=== PATIENT | female | born 1955 | race Caucasian/White ===

== ENCOUNTER 2018-09-03 21:50 | Emergency (ER) | payer MEDICARE, OTHER ==
[~2018-09-03] VITALS: Ht 157.5 cm; Wt 54.4 kg
--- NOTE | 2018-09-03 21:55 | NUR ---
Dr. Ron at bedside for MSE.
[2018-09-03] MEDS ORDERED: IV NORMAL SALINE 500 ML BAG IV ONE (22:00)
[2018-09-03] MEDS ORDERED: PROCHLORPERAZINE EDISYLATE 10 MG/2 ML VIAL IV ONE (22:00)
[2018-09-03] MEDS ORDERED: HYDROMORPHONE 1 MG/1 ML DISP.SYRIN IV ONE (22:00)
[2018-09-03] MEDS ORDERED: PROCHLORPERAZINE EDISYLATE 10 MG/2 ML VIAL ONE (22:04)
[2018-09-03] MEDS ORDERED: HYDROMORPHONE 1 MG/1 ML DISP.SYRIN ONE (22:04)
--- NOTE | 2018-09-03 22:18 | NUR ---
Xray at bedside.
--- NOTE | 2018-09-03 22:21 | NUR ---
Pt out of ER for CT.
[2018-09-03 22:23] LABS: BASOPHILS # (AUTO) 0.1 K/uL (0.0-8.0); BASOPHILS % (AUTO) 0.9 % (0.0-2.0); EOSINOPHILS # (AUTO) 0.1 K/uL (0.0-0.7); EOSINOPHILS % (AUTO) 1.7 % (0.0-7.0); HEMATOCRIT 46.3 % (31.2-41.9); HEMOGLOBIN 16.1 g/dL (10.9-14.3); LYMPHOCYTES # (AUTO) 1.2 K/uL (20.0-40.0); LYMPHOCYTES % (AUTO) 19.1 % (20.5-51.5); MEAN CORPUSCULAR HEMOGLOBIN 31.5 uug (24.7-32.8); MEAN CORPUSCULAR HGB CONC 35 g/dL (32.3-35.6); MEAN CORPUSCULAR VOLUME 90.4 fL (75.5-95.3); MONOCYTES # (AUTO) 0.1 K/uL (2.0-10.0); MONOCYTES % (AUTO) 2.4 % (0.0-11.0); NEUTROPHILS # (AUTO) 4.6 K/uL (1.8-8.9); NEUTROPHILS % (AUTO) 75.9 % (38.5-71.5); PLATELET COUNT (AUTO) 324 K/uL (179-408); RED BLOOD CELL COUNT(AUTO) 5.12 MIL/uL (3.63-4.92); WHITE BLOOD COUNT (AUTO) 6.1 K/uL (3.8-11.8)
[2018-09-03 22:33] LABS: BILIRUBIN,DIRECT 0.1 mg/dL (0.0-0.2); BILIRUBIN,TOTAL 0.7 mg/dL (0.2-1.0); TOTAL PROTEIN, SERUM 8.3 g/dL (6.4-8.2)
--- NOTE | 2018-09-03 22:36 | NUR ---
Pt back to ER from CT.
[2018-09-03 22:43] LABS: CREATININE 0.7 mg/dL (0.6-1.3); POTASSIUM 3.5 mmol/L (3.5-5.1)
--- NOTE | 2018-09-03 22:45 | NUR ---
Pt refused real catheter. Placed patient on bedpan.
--- NOTE | 2018-09-03 22:51 | NUR ---
Pt provided urine sample, sent to lab.
[2018-09-03 22:56] LABS: *BILIRUBIN,URIN NEGATIVE (NEGATIVE); *BLOOD, URINE 2+ (NEGATIVE); *CLARITY,URINE SLIGHTLY CLOUDY (CLEAR); *COLOR,URINE YELLOW (YELLOW); *KETONES,URINE 2+ (NEGATIVE); *PROTEIN,URINE TRACE (NEGATIVE); *UROBILINOGEN,URINE 0.2 E.U./dl (NORMAL); LEUKOCYTE ESTERASE ,URINE 3+ (NEGATIVE); NITRITE, URINE POSITIVE (NEGATIVE); UGLUCOSE NEGATIVE (NEGATIVE)
[2018-09-03 22:59] LABS: BACTERIA,URINE MANY /HPF (NONE SEEN); SQUAMOUS EPITHELIAL CELL,UR FEW /HPF (NONE SEEN); WBC,URINE 20-50 /HPF (0-3)
[2018-09-03] MEDS ORDERED: IV NORMAL SALINE 1000 ML BAG IV ONE (23:00)
[2018-09-03] MEDS ORDERED: NITROFURANTOIN/NITROFURAN MAC 100 MG CAPSULE ONE (23:11)
[2018-09-03] MEDS ORDERED: NITROFURANTOIN/NITROFURAN MAC 100 MG CAPSULE PO ONE (23:15)
--- NOTE | 2018-09-03 23:33 | NUR ---
Patient discharged to home in stable conditon. Written and verbal after care instructions given. Patient verbalizes understanding of instructions. Pt out of ER via wheelchair, in waiting room accompanied by caregiver waiting for taxi, no acute signs of distress, VSS, all belongings taken, IV site discontinued.
[2018-09-03 23:35] VITALS: BP 125/85
== END 2018-09-03 23:36 | disposition home or self-care (01) ==
LOC: ER 21:52
DX: R51 Headache (principal); R11.0 Nausea; F20.9 Schizophrenia, unspecified; E87.1 Hypo-osmolality and hyponatremia; M35.00 Sjogren syndrome, unspecified; K21.9 Gastro-esophageal reflux disease without esophagitis; Z88.2 Allergy status to sulfonamides
CPT/HCPCS: 36415; 70450; 71045; 80048; 80076; 81001; 84484; 85025; 85730; 93005; 96374; 96375; 99284; J0780; J1170; 70030-TC; A4663; C1758; J7030; J7040

== ENCOUNTER 2018-12-14 21:06 | Inpatient (IN) | payer MEDICARE, OTHER ==
[~2018-12-14] VITALS: Ht 165.1 cm; Wt 45.4 kg
--- NOTE | 2018-12-14 21:34 | NUR ---
Patient refused xray
[2018-12-14] MEDS ORDERED: POLY15DR57 OP (22:12)
[2018-12-14] MEDS ORDERED: PALI234D IM (22:12)
[2018-12-14 22:33] LABS: BASOPHILS % (AUTO) 0.4 % (0.0-2.0); EOSINOPHILS # (AUTO) 0.8 K/uL (0.0-0.7); EOSINOPHILS % (AUTO) 6.8 % (0.0-7.0); HEMATOCRIT 38.5 % (31.2-41.9); HEMOGLOBIN 13.1 g/dL (10.9-14.3); LYMPHOCYTES # (AUTO) 0.6 K/uL (20.0-40.0); LYMPHOCYTES % (AUTO) 4.8 % (20.5-51.5); MEAN CORPUSCULAR HEMOGLOBIN 30.3 uug (24.7-32.8); MEAN CORPUSCULAR HGB CONC 34 g/dL (32.3-35.6); MONOCYTES # (AUTO) 0.5 K/uL (2.0-10.0); NEUTROPHILS # (AUTO) 9.8 K/uL (1.8-8.9); PLATELET COUNT (AUTO) 236 K/uL (179-408); RED BLOOD CELL COUNT(AUTO) 4.32 MIL/uL (3.63-4.92); WHITE BLOOD COUNT (AUTO) 11.6 K/uL (3.8-11.8)
[2018-12-14 22:42] LABS: CARBON DIOXIDE 28 mmol/L (21-32); CHLORIDE 94 mmol/L (98-107); CREATININE 0.7 mg/dL (0.6-1.3); GLUCOSE 107 mg/dL (74-106); POTASSIUM 3.6 mmol/L (3.5-5.1); UREA NITROGEN, BLOOD 9 mg/dL (7-18)
[2018-12-14 22:47] LABS: ALANINE AMINOTRANSFERASE 47 U/L (14-59); ALKALINE PHOSPHATASE 59 U/L (50-136); ASPARTATE AMINOTRANSFERASE 37 U/L (15-37); BILIRUBIN,DIRECT 0.1 mg/dL (0.0-0.2); BILIRUBIN,TOTAL 0.4 mg/dL (0.2-1.0); TOTAL PROTEIN, SERUM 6.3 g/dL (6.4-8.2)
[2018-12-14 22:48] LABS: ACETAMINOPHEN < 10.0 ug/mL (10-30); ETHANOL < 3 MG/DL (0-0)
[2018-12-14 22:55] LABS: THYROID STIMULATING HORMONE 3.981 mIU/mL (0.358-3.740)
--- NOTE | 2018-12-14 23:25 | NUR ---
DR EDWARDS SPOKE WITH BANG MALHOTRA. OKAY TO ADMIT TO MHU. MEDICALLY CLEARED
--- NOTE | 2018-12-15 00:23 | NUR ---
TRANSFERED TO [facility] [place] [facility] [place]
[2018-12-15] MEDS ORDERED: ACETAMINOPHEN 325 MG TABLET PO PRN (00:30)
[2018-12-15] MEDS ORDERED: ZOLPIDEM 5 MG TABLET PO PRN (00:30)
[2018-12-15] MEDS ORDERED: LORAZEPAM 1 MG TABLET PO PRN (00:30)
[2018-12-15] MEDS ORDERED: MAGNESIUM HYDROXIDE 30 ML LIQUID UDC PO PRN (00:30)
--- NOTE | 2018-12-15 03:46 | NUR ---
Admitted a 64-year-old female from ER @0015 via [email or web address] with admitting diagnosis of psychosis. Accompanied by her caregiver and ER nurse. On 5150 hold up to 12/18/18 @2150 due to GD and DTO. Patient not interacting, uncooperative with care. Refused to be assess, to take pictures. History was taken from the mall plant caretaker. According to the caregiver, skin has rash on the upper chest and under the left breast fold. Referred to the ER doctor's note, the patient was combative, verbally aggressive toward [facility] staff, has bizarre behavior, and paranoidal thinking. Continue to monitor.
[2018-12-15] MEDS: BENZTROPINE MESYLATE 1 MG TABLET PO SCH ×2 (09:45→17:00)
[2018-12-15] MEDS: FLUPHENAZINE HCL 5 MG TABLET PO SCH ×2 (09:45→17:00)
[2018-12-15] MEDS ORDERED: FLUPHENAZINE HCL 2.5 MG/ML 10ML VIAL IM PRN (09:45)
--- NOTE | 2018-12-15 10:25 | NUR ---
RECEIVED PATIENT ALERT ON BED, ISOLATIVE AND WITHDRAWN, PATIENT INCREASE IN PARANOIA, NON COMPLIANT WITH MEDICATION VERBALLY ABUSIVE , PATIENT REFUSE MEDS, STOOD UP AND WENT TO THE FLOOR, PATIENT REFUSE TO GO BACK TO BED, REPOSITION BED TO FLAT, PATIENT WENT BACK TO BED, WILL CONTINUE MONITOR
--- NOTE | 2018-12-16 04:36 | NUR ---
RECEIVED PATIENT IN HER ROOM IN BED. WHEN OUTGOING RN INTRODUCED THIS PEER COUNSELOR, PT NOTED SELECTIVELY MUTE, NOT ANSWERING ANY ON THE QUESTION. FLAT AFFECT, IRRITABLE MOOD, LABILE, AND BIZARRE BEHAVIOR IS NOTED. NO AGGRESSIVE/COMBATIVE BX NOTED AT THIS TIME. V/S STABLE. PATIENT WAS REASSURED FOR HER SAFETY. WILL CONTINUE TO MONITOR.
[2018-12-16] MEDS ORDERED: OLANZAPINE 10 MG VIAL IM ONE ×2 (07:30→12:45)
--- NOTE | 2018-12-16 07:40 | NUR ---
AT APPROX 0720 PATIENT CAME INTO THE NURSE'S COMPUTER ROOM AND OPEN THE STAFF REFRIGERATOR AND HELPING HERSELF WITH FOOD AND DRINK. WHEN ATTEMPTED TO REMOVED PATIENT OUT OF THE COMPUTER ROOM AND REDIRECTED, SHE BECAME VERBALLY ABUSIVE, COMBATIVE, COMING AFTER THIS ROADABILITY MACHINE OPERATOR, HITTING AND SLAPPING CNAs. SECURITY WAS CALLED. DR ROSAS WAS NOTIFY OF OH'S BEHAVIOR AND OBTAINED NEW TELEPHONE ORDER TO ADMINISTER ZYPREXA 10MG IM ONE TIME ORDER. ORDER NOTED AND CARRIED OUT. WILL CONTINUE TO MONITOR.
[2018-12-16] MEDS: BENZTROPINE MESYLATE 1 MG TABLET PO SCH ×2 (09:00→17:00)
[2018-12-16] MEDS: POLYVINYL ALCOHOL OPHT DROPS 15 ML BOTTLE EACHEYE SCH (09:00)
[2018-12-16] MEDS: FLUPHENAZINE HCL 5 MG TABLET PO SCH ×2 (09:00→09:13)
--- NOTE | 2018-12-16 09:10 | NUR ---
Gps/Electronic Prepress Operator- Found patient lying flat on the floor, next to her bed buttomless, no pants, when asked to get up from the floor refused. Staff (3) assisted patient to stand up, refusing to bed pants/diaper, was uncooperative, kicking and hitting staff, verbally abusive to the staff. Put on the celestine-chair in front of the Nurses station pretending not responding eyes are close, but in about 5 minutes patient got out of the celestine-chair, walked back to her room and put self into her bed, covered self with her bed sheets.No distress, continue to monitor behavior, safety emphasized.
--- NOTE | 2018-12-16 09:54 | NUR ---
SW attempted to contact patient's LPS Conservator, Luz Elena Marcano ([phone]) to gather collateral information. SW left a voice message for a return call. SW will continue to follow-up.
--- NOTE | 2018-12-16 12:30 | NUR ---
Gps/Environmental Field Services Technician- Continue to monitor behavior, patient very disruptive , agitated, aggresive towards the staff, difficulty redirecting patient,threw lunch tray on the floor, then requesting more lunch tray . Fluid restrictions emphasized.
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
--- NOTE | 2018-12-16 15:00 | NUR ---
Gps/Jewel Bearing Driller- Patient requested 2 apple sauce, when spoon given requested 2 spoons, informed she does not need 2 spoon, she started yelling, calling staff names and threw opened apple sauce in the Nurses station, and walked away.
--- NOTE | 2018-12-16 17:09 | NUR ---
Gps/Reeling Operator- Continue with setting limits, patient w/ a demanding behavior, gets needy and argumentative, with verbally abussive behavior noted.Gets irritable and angry when being redirected .Tends to lay down on the floor, discouraged from doing so, when being ignored tend to get up , and goes right back to bed.
--- NOTE | 2018-12-16 17:44 | NUR ---
Gps/Fruit Thinner- Per patient ,staff kept offering and giving her medications ,which is poison , so she can early. Remains with paranoid behavior .,
--- NOTE | 2018-12-16 22:06 | NUR ---
Received pt sleeping in bed. Pt refused vital signs check. Risks and benefits explained. Pt approached the station and asked for dinner. Pt had 2 sandwiches and 1 diet soda. Pt is now back to bed and sleeping. Safety measures maintained. Will continue to monitor.
[2018-12-17] MEDS: OLANZAPINE 10 MG VIAL IM PRN ×2 (08:41→17:53)
[2018-12-17] MEDS: FLUPHENAZINE HCL 5 MG TABLET PO SCH ×2 (08:45→17:00)
[2018-12-17] MEDS: BENZTROPINE MESYLATE 1 MG TABLET PO SCH ×2 (08:45→17:00)
[2018-12-17] MEDS: POLYVINYL ALCOHOL OPHT DROPS 15 ML BOTTLE EACHEYE SCH (08:45)
--- NOTE | 2018-12-17 12:25 | NUR ---
Initial Discharge Instructions: Patient is a resident at [facility] [[address] [place] [address]; [phone]]. Spoke with pt's LPS Conservator, Luz Elena ([phone]) who reports she would like patient to return to that facility upon discharge. Conservator states that pt is there with 24/7 caregiver. SW attempted to contact Wheel Braider, Bree Echeverria ([phone]) to confirm that the patient can return there. SW left a message for a return call. KELLY will continue to collaborate with pt, LPS Conservator, and MD regarding most appropriate discharge plans for this patient. SW will form a safe and proper discharge plan.
--- NOTE | 2018-12-17 18:10 | NUR ---
Gps/Transplant Worker- Noted patient calmer this pm, offered her routine pm meds. patient claimed she does not need anymore , she already had her IM shot this am, reviewed w/ patient every time she refused her routine psych. med. she will received injection . When staff came to her room to administer her injection patient was calm, cooperative , she pulled her pants down to assist staff .
--- NOTE | 2018-12-18 06:25 | NUR ---
GPS: Remain calm and cooperative with care. no agitation noted. slept 9 hrs through out the night. resting in bed comfortably. continue plan of care.
--- NOTE | 2018-12-18 06:26 | NUR ---
gps: refused am lab. charge nurse aware.
[2018-12-18] MEDS: BENZTROPINE MESYLATE 1 MG TABLET PO SCH ×2 (09:00→16:51)
[2018-12-18] MEDS: POLYVINYL ALCOHOL OPHT DROPS 15 ML BOTTLE EACHEYE SCH (09:00)
[2018-12-18] MEDS: FLUPHENAZINE HCL 5 MG TABLET PO SCH ×2 (09:00→16:51)
[2018-12-18] MEDS: OLANZAPINE 10 MG VIAL IM PRN ×2 (09:12→16:54)
--- NOTE | 2018-12-18 18:11 | NUR ---
GPS: RECEIVED PATIED ALERT ON BED, PATIENT HYPERVERBAL, VERBALLY ABUSIVE, PATIENT REFUSED ALL ORAL MEDS, IM MEDICATION GIVEN , PATIENT COOPERATE AND LETS STAFF GAVE IM , TOOK SHOWER, ATE HER MEAL, SELF CARE AND AMBULATORY, WILL CONTINUE TO MONITOR
--- NOTE | 2018-12-19 04:25 | NUR ---
GPS/NSG Patient first observed awake in room, no distress noted. Patient did not have HS medication, flat affect, low mood with minimal interaction. Patient slept through the night, appeared awake at times intermittently. At approx. 0350 nursing staff rushed to the room after a noise was heard and found patient lying prone on the bathroom floor. Patient verbalized feeling dizzy and expressed the desire to throw up. Patient continued on the floor when offered assistance patient refused Patient sat up without assist according to charge nurse. A laceration and bruise on the head was noted. Dr. Zavala contacted CT scan of the head ordered stat as well as Q 15 minute neuro checks. Patient appeared reluctant to accept any type of assistance. Patient was able to walk to the bed according to charge account identification clerk and GASTROENTEROLOGY NURSE staff vital signs B/P 95/62, HR 79, O2sat 99%, temp. 98.1. Nursing staff attempted to position patient in a comfortable position, patient became agitated and hostile towards staff, became verbally abusive towards staff demanding the bed remain flat. Patient verbalized pain on her right knee however no level of pain given. No change in level of consciousness noted patient did not want to be assessed by nursing staff and asked to be left alone also demanded that we turn off the light. Will continue to monitor patient for safety and well-being. Last observed patient being transferred via celestine-chair to radiology.
--- NOTE | 2018-12-19 05:24 | NUR ---
GPS/NSG Patient returned from CT scan with CERTIFIED MEDICAL AIDE, patient defecated on herself, patient offered a shower, patient reluctant, refusing staff assist.
[2018-12-19] MEDS ORDERED: MAG HYDROX/AL HYDROX/SIMETH 30 ML LIQUID UDC PO PRN (05:45)
--- NOTE | 2018-12-19 06:00 | NUR ---
GPS/NSG Dr. Solitario returned call, notified of fall, and head injury to the patient. 1:1 order obtained. Will endorse to nursing staff.
--- NOTE | 2018-12-19 06:15 | NUR ---
0615-PATIENT DECLINED NEURO CHECK. CONTINUE TO MONITOR FOR SAFETY.
--- NOTE | 2018-12-19 06:30 | NUR ---
PATIENT LYING IN BED, ASLEEP, AROUSABLE, REFUSED NEURO CHECK, BREATHS EVEN AND UNLABORED, NO DISTRESS NOTED.
--- NOTE | 2018-12-19 06:45 | NUR ---
PATIENT LYING IN BED, ASLEEP, AROUSABLE, REFUSED NEURO CHECK, BREATHS EVEN AND UNLABORED, NO DISTRESS NOTED.
--- NOTE | 2018-12-19 07:04 | NUR ---
PATIENT LYING IN BED, ASLEEP, REFUSED NEURO CHECK, BREATHS EVEN AND UNLABORED, NO DISTRESS NOTED.
[2018-12-19 07:30] VITALS: BP 90/54
--- NOTE | 2018-12-19 07:40 | NUR ---
SBAR report received,pt.awake no s/s of distress noted,denies any pain @ time.
[2018-12-19 08:01] LABS: BASOPHILS % (AUTO) 0.1 % (0.0-2.0); CREATININE 0.9 mg/dL (0.6-1.3); EOSINOPHILS % (AUTO) 0.2 % (0.0-7.0); HEMATOCRIT 39.7 % (31.2-41.9); HEMOGLOBIN 13.4 g/dL (10.9-14.3); LYMPHOCYTES # (AUTO) 0.3 K/uL (20.0-40.0); LYMPHOCYTES % (AUTO) 3.4 % (20.5-51.5); MAGNESIUM 2.1 mg/dL (1.8-2.4); MEAN CORPUSCULAR HEMOGLOBIN 30.4 uug (24.7-32.8); MEAN CORPUSCULAR HGB CONC 34 g/dL (32.3-35.6); MEAN CORPUSCULAR VOLUME 90.2 fL (75.5-95.3); MONOCYTES # (AUTO) 0.3 K/uL (2.0-10.0); MONOCYTES % (AUTO) 3.5 % (0.0-11.0); NEUTROPHILS # (AUTO) 7.5 K/uL (1.8-8.9); NEUTROPHILS % (AUTO) 92.8 % (38.5-71.5); PHOSPHOROUS 3.7 mg/dL (2.5-4.9); PLATELET COUNT (AUTO) 269 K/uL (179-408); POTASSIUM 3.6 mmol/L (3.5-5.1); WHITE BLOOD COUNT (AUTO) 8.1 K/uL (3.8-11.8)
[2018-12-19 08:33] LABS: URIC ACID 3.6 mg/dL (2.6-6.0)
[2018-12-19] MEDS: BENZTROPINE MESYLATE 1 MG TABLET PO SCH ×3 (08:47→17:00)
[2018-12-19] MEDS: FLUPHENAZINE HCL 5 MG TABLET PO SCH ×4 (08:47→21:11)
[2018-12-19] MEDS: POLYVINYL ALCOHOL OPHT DROPS 15 ML BOTTLE EACHEYE SCH ×2 (08:47→08:51)
--- NOTE | 2018-12-19 16:31 | NUR ---
Pt.walking on hallway, no other interaction.
--- NOTE | 2018-12-19 18:29 | NUR ---
Pt.refused from PO meds. uncooperative.eating dinner.
[2018-12-19 20:29] VITALS: BP 112/70
[2018-12-19] MEDS: OLANZAPINE 10 MG VIAL IM PRN (21:10)
--- NOTE | 2018-12-19 21:20 | NUR ---
patient refused Prolixin 5 mg po. Zyprexa 5 mg im given late charge nurse aware.
--- NOTE | 2018-12-20 06:47 | NUR ---
Patient remained cooperative with care. Slept for 3.3 hours. Patient refused PO Prolaxin 5mg twice daytime. IM zyprexa not given twice. Offered PO Prolaxin at 2200. Patient refused. Zyprexa 5mg IM given. Charge nurse aware. Patient currently resting in room at this time. No behavior issues noted at this time. Continue monitoring for safety.
[2018-12-20] MEDS: POLYVINYL ALCOHOL OPHT DROPS 15 ML BOTTLE EACHEYE SCH (09:00)
[2018-12-20] MEDS: BENZTROPINE MESYLATE 1 MG TABLET PO SCH ×2 (09:00→16:54)
[2018-12-20] MEDS: OLANZAPINE 10 MG VIAL IM PRN ×2 (09:07→16:48)
--- NOTE | 2018-12-20 09:07 | NUR ---
PATIENT IN BED UNCOOPERATIVE VERBALLY ABUSIVE WILL NOT CONFIRM HER NAME AND REFUSED FOR ME TO CHECK HER NAME TAG REFUSED HER ORAL MEDICATIONS INFORMED HER THAT SHE WILL GET AN I M SHOT IF SHE DID NOT TAKE HER ORAL MEDS STATED THAT SHE WILL TAKE THE I.M SO PROLIXIN GIVEN IN ORDERED WILL CONTINUE TO OBSERVE.
[2018-12-20] MEDS ORDERED: FLUPHENAZINE DECANOATE 25 MG/ML 5ML VIAL IM SCH (10:00)
--- NOTE | 2018-12-20 11:28 | NUR ---
SODIUM LEVEL IS B138 AT THIS TIME MD AWARE AND FLUID RESTRICTION DISCONTINUED.
--- NOTE | 2018-12-20 11:41 | NUR ---
Discharge Planning Note: KELLY attempted to contact Gordyzofia Echeverria, Durable Medical Equipment Technician at [facility], ([phone]) to discuss discharge planning and confirm if patient is able to return to the facility when stable for discharge. Spoke with Natalie at the front office assistant who stated that Ms. Echeverria is not in the office today, but will be returning tomorrow. KELLY left a message with Natalie for a return call. KELLY will continue to follow-up.
--- NOTE | 2018-12-20 14:22 | NUR ---
I:1 SITTER DISCONTINUED AT THIS TIME PATIENT IS ALERT AMBULATORY UP AND DOWN WILL CONTINUE TO OBSERVE AND PROVIDE SAFE AND THERAPEUTIC ENVIRONMENT AT ALL TIMES.
[2018-12-20] MEDS: FLUPHENAZINE HCL 5 MG TABLET PO SCH (16:55)
--- NOTE | 2018-12-20 17:59 | NUR ---
PATIENT CONTINUES TO REFUSE ORAL PSYCH MEDICATIONS ORDERED ZYPREXA GIVEN I.M PATIENT DID NOT STRUGGLE FREELY ACCEPTED THE INTRAMUSCULAR
[2018-12-21] MEDS: OLANZAPINE 10 MG VIAL IM PRN ×3 (08:29→16:46)
[2018-12-21] MEDS: POLYVINYL ALCOHOL OPHT DROPS 15 ML BOTTLE EACHEYE SCH (08:42)
[2018-12-21] MEDS: BENZTROPINE MESYLATE 1 MG TABLET PO SCH ×2 (08:42→16:46)
[2018-12-21] MEDS: FLUPHENAZINE HCL 5 MG TABLET PO SCH (08:43)
[2018-12-21] MEDS: OLANZAPINE ZYDIS 5 MG TAB.RAPDIS PO SCH ×3 (08:59→16:46)
--- NOTE | 2018-12-21 09:44 | NUR ---
Discharge Planning Note: SW called and spoke with Bree Echeverria at [facility] ([phone]) to discuss discharge planning. Per Ms. Echeverria, the patient is welcome back to the facility. Ms. Echeverria request that the facility come assess the patient 1 day prior to her discharge to ensure proper care. SW will continue to follow-up.
--- NOTE | 2018-12-21 18:00 | NUR ---
REFUSED ALL HER ORAL MEDICATIONS TODAY AND HAD TO GET IM INJECTIONS WHICH SHE DID NOT MAKE TOO MUCH FUSS ABOUT GETTING REFUSED HER LUNCH BUT HAD DINNER VERY UNPREDICTABLE WALKS UP AND DOWN BACK AND FORTH WILL CONTINUE TO MONITOR AND PROVIDE SAFE AND THERAPEUTIC ENVIRONMENT AT ALL TIMES.
[2018-12-22 07:30] VITALS: BP 103/66
[2018-12-22] MEDS: BENZTROPINE MESYLATE 1 MG TABLET PO SCH ×2 (09:00→17:00)
[2018-12-22] MEDS: POLYVINYL ALCOHOL OPHT DROPS 15 ML BOTTLE EACHEYE SCH (09:00)
[2018-12-22] MEDS: OLANZAPINE ZYDIS 5 MG TAB.RAPDIS PO SCH ×3 (09:00→17:00)
[2018-12-22] MEDS: OLANZAPINE 10 MG VIAL IM PRN ×3 (09:08→17:05)
--- NOTE | 2018-12-22 18:01 | NUR ---
RECEIVED PATIENT AWAKE ON BED, PATIENT DENIES PAIN , NO SOB, AND NO DISCOMFORT NOTED, PATIENT DENIES SI AND HI, PATIENT REFUSED ALL ORAL MEDS, IM MEDICATION GIVEN ORDERED, PATIENT SEEN AMBULATING IN THE HALLWAY, PATIENT STILL VERBALLY ABUSIVE AT TIMES, WILL CONTINUE MONITOR
[2018-12-23 07:30] VITALS: BP 100/67
[2018-12-23] MEDS: OLANZAPINE ZYDIS 5 MG TAB.RAPDIS PO SCH ×3 (09:00→17:00)
[2018-12-23] MEDS: POLYVINYL ALCOHOL OPHT DROPS 15 ML BOTTLE EACHEYE SCH (09:00)
[2018-12-23] MEDS: BENZTROPINE MESYLATE 1 MG TABLET PO SCH ×2 (09:00→17:00)
--- NOTE | 2018-12-23 09:30 | NUR ---
Gps/Fiber Designer- Pacing back and forth the hallway. Redirected to her room since patient refused routine am meds. informed staff needed to administer her IM zypreza, went back to her room , then came back out of her room walking buttomles(naked) discouraged patient from potraying such behavior, hospital gown put on patient.
[2018-12-23] MEDS: OLANZAPINE 10 MG VIAL IM PRN ×3 (09:34→17:51)
[2018-12-23 16:29] VITALS: BP 94/62
--- NOTE | 2018-12-23 17:44 | NUR ---
Gps/Can Doffer- Patient still refusing routine psychotropic meds. re offered couple of times, explained the importance aware she will received her zypreza 5 mg IM , claimed she does not care. She dumped dinner tray inside the food cart , claimed does not like the food. Irritable and argumentative , demanding behavior.
--- NOTE | 2018-12-24 06:18 | NUR ---
GPS: Remain calm and cooperative. slept 5 hrs through the night. no agressive behavior noted at this time. continue plan of care.
[2018-12-24] MEDS: POLYVINYL ALCOHOL OPHT DROPS 15 ML BOTTLE EACHEYE SCH (09:00)
[2018-12-24] MEDS: OLANZAPINE ZYDIS 5 MG TAB.RAPDIS PO SCH ×3 (09:00→17:00)
[2018-12-24] MEDS: OLANZAPINE 10 MG VIAL IM PRN ×3 (09:45→17:27)
--- NOTE | 2018-12-24 13:15 | NUR ---
Gps/Quality Control Engineer- Dr Keating in to see patient, was informed patient had complained of nausea, and felt food is coming up. Informed pt. needed to check her vital signs, refused claimed " you will note take my b/p". Offered routine 1300 psych.med. refused, informed she will receive her Zyprexa 5 mg IM as ordered . Angry, paranoid ,irritable .Asked patient if she moved her bowels recently, patient stated" what is it to you, leave ".
--- NOTE | 2018-12-24 16:00 | NUR ---
Discharge plannin:50am: boiler plant worker called and spoke with Cale, measurement coordinator, at [facility] [ ] regarding patient discharge. boiler plant worker inquired if Cale would be able to come and assess patient for readmission on Thursday or Thursday of next week as discharge is approaching. Per Cale, she stated she would check with her RN to schedule and call this rfp writer back. 3:20pm: After receiving no return call, social media director called [facility] again requesting to speak with Cale. Per train crew member, Cale was in a meeting ans states she will have her call this rfp writer when meeting is done. boiler plant worker will continue to follow-up to schedule reassessment of patient.
[2018-12-24 20:00] VITALS: BP 106/61
[2018-12-25] MEDS: POLYVINYL ALCOHOL OPHT DROPS 15 ML BOTTLE EACHEYE SCH ×2 (09:00→10:45)
[2018-12-25] MEDS: OLANZAPINE ZYDIS 5 MG TAB.RAPDIS PO SCH ×4 (09:00→17:00)
[2018-12-25] MEDS: OLANZAPINE 10 MG VIAL IM PRN ×3 (11:00→18:31)
[2018-12-26] MEDS: POLYVINYL ALCOHOL OPHT DROPS 15 ML BOTTLE EACHEYE SCH (09:00)
[2018-12-26] MEDS: OLANZAPINE ZYDIS 5 MG TAB.RAPDIS PO SCH ×3 (09:00→17:00)
[2018-12-26] MEDS: OLANZAPINE 10 MG VIAL IM PRN ×3 (09:17→17:42)
[2018-12-26 15:46] VITALS: BP 99/60
[2018-12-26 20:00] VITALS: BP 100/67
[2018-12-27 07:30] VITALS: BP 101/53
[2018-12-27] MEDS: POLYVINYL ALCOHOL OPHT DROPS 15 ML BOTTLE EACHEYE SCH (08:46)
[2018-12-27] MEDS: OLANZAPINE 10 MG VIAL IM PRN (08:46)
[2018-12-27] MEDS: OLANZAPINE ZYDIS 5 MG TAB.RAPDIS PO SCH (08:46)
--- NOTE | 2018-12-27 13:11 | NUR ---
Discharge Planning Note: KELLY called to speak with Cale, Automotive Parts Counter Associate at [facility] ([phone]) to discuss time for her and an RN to come assess the patient. Spoke with Natalie at the front sight attacher who states that Cale does not work on Mondays. SW asked to be transferred to pt's RN Vijay Malone. Per Natalie, Vijay was away from his desk. KELLY left a message for both Vijay and Cale to call back and informed the facility that patient's discharge will be this week. KELLY will continue to follow-up.
--- NOTE | 2018-12-27 15:32 | NUR ---
tannery worker reviewed voicemail left Thursday after hours, Cale, infection control coordinator, at [facility] [ ] returned social workers call and stated that pt is welcome to return on conditions that she is not on any bruce drips for antibiotics and her skin condition has cleared up. tannery worker attempted to return Cale call however infection control coordinator does not work Mondays.
[2018-12-27 17:55] VITALS: BP 107/65
--- NOTE | 2018-12-27 18:41 | NUR ---
RECEIVED PATIENT AWAKE ON BED, CALM, HOWEVER STILL REFUSED HER ORAL MEDICATION, DENIES PAIN AND DENIES SI AND HI, PATIENT SELF CARE, ALL NEEDS MET WILL CONTINUE TO MONITOR
--- NOTE | 2018-12-27 21:47 | NUR ---
received to care, isolative, and guarded, upon approach. no aggressive behavior noted. currently lying in bed. no distress noted. will continue to monitor closely.
[2018-12-27 22:30] VITALS: BP 100/73
--- NOTE | 2018-12-28 06:19 | NUR ---
slept 8.5 hours, total.
[2018-12-28] MEDS: POLYVINYL ALCOHOL OPHT DROPS 15 ML BOTTLE EACHEYE SCH (08:27)
--- NOTE | 2018-12-28 18:01 | NUR ---
RECEIVED PATIENT ASLEEP ON BED, PATIENT STILL REFUSE ORAL MEDICATION, PATIENT CALM AND MANAGEABLE THE WHOLE SHIFT, SHOWS GOOD BEHAVIOR TOWARDS STAFF, DENIES PAIN AND NO SOB, WILL CONTINUE MONITOR
--- NOTE | 2018-12-28 22:00 | NUR ---
received to care, isolative, but pleasant, upon approach. no aggressive behavior noted. currently lying in bed. no distress noted. will continue to monitor closely.
--- NOTE | 2018-12-29 06:45 | NUR ---
slept 7.5 hours, total. remains asleep. no distress noted.
[2018-12-29 07:30] VITALS: BP 97/58
[2018-12-29] MEDS: POLYVINYL ALCOHOL OPHT DROPS 15 ML BOTTLE EACHEYE SCH (09:06)
--- NOTE | 2018-12-29 10:06 | NUR ---
Discharge Note: Patient will be discharged back to [facility] [Address: [address] [place] [address]; ] via ambulance at 1 pm. Spoke with Vijay Admission RN, at the facility who states they are ready to accept the patient back today. Spoke with patients LPS Conservator, Luz Elena ([phone]) who is requesting ambulance transportation at 1pm. Per Luz Elena, she would also like a caregiver of the patient to accompany her to the facility. Luz Elena reports that pt caregiver will present to the unit at 1pm and accompany patient to facility in the ambulance. When inquiring about pts PCP, the Conservator reports that she always refuses. SW provided pt with referral to [facility] for supervisor cell efficiency ([phone]). Patient will continue to follow-up with her outpatient Psychiatrist, Dr. Johnny Quintana [Address: [facility] [address] , [place] [address]; ]. Patient was also provided with outpatient mental health referrals to [facility] [ ], [facility] [ ], and [facility] Su[facility] [ ].
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
== END 2018-12-29 13:30 | DRG 885 ==
LOC: ER 21:06 → GPS 23:59
PROVIDERS: ADMIT Psychiatry & Neurology Psychiatry; ATTEND Internal Medicine Nephrology
DX: F25.0 Schizoaffective disorder, bipolar type (principal); E22.2 Syndrome of inappropriate secretion of antidiuretic hormone; E44.1 Mild protein-calorie malnutrition; Z68.1 Body mass index [BMI] 19.9 or less, adult; F29 Unspecified psychosis not due to a substance or known physiological condition; M35.00 Sjogren syndrome, unspecified; K21.9 Gastro-esophageal reflux disease without esophagitis; R21 Rash and other nonspecific skin eruption; R94.6 Abnormal results of thyroid function studies; S01.91XA Laceration without foreign body of unspecified part of head, initial encounter; W19.XXXA Unspecified fall, initial encounter; Y93.9 Activity, unspecified; Y92.230 Patient room in hospital as the place of occurrence of the external cause
CPT/HCPCS: 36415; 70030-TC; 70450; 83605; 83735; 84100; 84443; 84480; 84550; 85025; 85730; 87040; 93005; A4663; G0480; G0480-TC; J2358; J2680

== ENCOUNTER 2019-06-16 21:21 | Emergency (ER) | payer MEDICARE, OTHER ==
[~2019-06-16] VITALS: Ht 157.5 cm; Wt 48.1 kg
[~2019-06-16 21:21] MED LIST: POLY15DR31 OP
--- NOTE | 2019-06-16 22:30 | NUR ---
PATIENT BIB PRIVATE AMBULANCE FROM [facility], PATIENT STATES THAT SHE FELT LIKE SHE HAD A SEIZURE WHILE SITTING ON THE TOILET BUT IS NOT SURE, SHE STATES THAT SHE WAS HOLDING ON TO THE CURTAIN IN HER BATHROOM. PATIENT HAS H/O SEIZURE, LAST EPISODE OCTOBER 2018, DOES NOT TAKE MEDICATION FOR SEIZURES.
[2019-06-16 22:54] LABS: *BILIRUBIN,URIN NEGATIVE (NEGATIVE); *BLOOD, URINE 1+ (NEGATIVE); *CLARITY,URINE CLEAR (CLEAR); *COLOR,URINE LIGHT YELLOW (YELLOW); *KETONES,URINE NEGATIVE (NEGATIVE); *UROBILINOGEN,URINE 0.2 E.U./dl (NORMAL); LEUKOCYTE ESTERASE ,URINE 1+ (NEGATIVE); NITRITE, URINE NEGATIVE (NEGATIVE); UGLUCOSE NEGATIVE (NEGATIVE)
[2019-06-16 22:54] LABS: BASOPHILS # (AUTO) 0.1 K/uL (0.0-8.0); BASOPHILS % (AUTO) 0.9 % (0.0-2.0); EOSINOPHILS # (AUTO) 0.5 K/uL (0.0-0.7); EOSINOPHILS % (AUTO) 7.6 % (0.0-7.0); HEMATOCRIT 43.6 % (31.2-41.9); HEMOGLOBIN 14.5 g/dL (10.9-14.3); LYMPHOCYTES # (AUTO) 1.7 K/uL (20.0-40.0); LYMPHOCYTES % (AUTO) 27.5 % (20.5-51.5); MEAN CORPUSCULAR HEMOGLOBIN 30.3 uug (24.7-32.8); MEAN CORPUSCULAR HGB CONC 33 g/dL (32.3-35.6); MEAN CORPUSCULAR VOLUME 91.2 fL (75.5-95.3); MONOCYTES # (AUTO) 0.5 K/uL (2.0-10.0); MONOCYTES % (AUTO) 7.3 % (0.0-11.0); NEUTROPHILS # (AUTO) 3.6 K/uL (1.8-8.9); NEUTROPHILS % (AUTO) 56.7 % (38.5-71.5); PLATELET COUNT (AUTO) 229 K/uL (179-408); RED BLOOD CELL COUNT(AUTO) 4.78 MIL/uL (3.63-4.92); WHITE BLOOD COUNT (AUTO) 6.3 K/uL (3.8-11.8)
[2019-06-16] MEDS ORDERED: FLUP25VI4 IJ (22:57)
[2019-06-16] MEDS ORDERED: PALI234D IM (22:57)
[2019-06-16 23:06] LABS: CREATININE 0.7 mg/dL (0.6-1.3); POTASSIUM 3.7 mmol/L (3.5-5.1)
[2019-06-16 23:07] LABS: BACTERIA,URINE NONE SEEN /HPF (NONE SEEN); SQUAMOUS EPITHELIAL CELL,UR FEW /HPF (NONE SEEN)
[2019-06-16 23:13] LABS: BILIRUBIN,DIRECT 0.1 mg/dL (0.0-0.2); BILIRUBIN,TOTAL 0.3 mg/dL (0.2-1.0); TOTAL PROTEIN, SERUM 7.4 g/dL (6.4-8.2)
[2019-06-16] MEDS ORDERED: CEphaleXIN 250 MG CAPSULE PO ONE (23:45)
[2019-06-16] MEDS ORDERED: CEphaleXIN 250 MG CAPSULE ONE (23:48)
--- NOTE | 2019-06-17 00:18 | NUR ---
[id number] E[facility] [id number] PATIENT NOTIFIED.
--- NOTE | 2019-06-17 01:28 | NUR ---
[facility] FROM [facility] HERE FOR GLOBAL ENGINEERING MANAGER. Patient discharged to home in stable conditon. Written and verbal after care instructions given. Patient verbalizes understanding of instructions.
[2019-06-17 01:29] VITALS: BP 118/68
== END 2019-06-17 01:30 | disposition home or self-care (01) ==
LOC: ER 21:23
DX: N39.0 Urinary tract infection, site not specified (principal); K21.9 Gastro-esophageal reflux disease without esophagitis; R56.9 Unspecified convulsions; F20.9 Schizophrenia, unspecified; Z88.2 Allergy status to sulfonamides; Z79.899 Other long term (current) drug therapy
CPT/HCPCS: 36415; 70030-TC; 85025; 87086; 93005; A4663